=== PATIENT | male | born 1960 | race Caucasian/White ===

== ENCOUNTER 2024-11-26 14:45 | Emergency (ER) | payer MEDICARE, MEDICAID, SELFPAY ==
[2024-11-26 14:46] VITALS: BMI 20.5
[2024-11-26 15:12] VITALS: BP 145/83; PULSE 101; RESP 19; TEMP 36.9; O2SAT 100
--- NOTE | 2024-11-26 15:31 | PD.EDADULT ---
ED General RME/HPI General Chief complaint: General Adult/Misc Complain Stated complaint: SEND BY CLINIC FOR LOW SODIUM LEVEL Time Seen by Provider: 11/26/24 15:24 Arrival date/time: 11/26/24 14:45 RME / HPI RME / HPI narrative: 64-year-old male patient with significant history of seizure disorder, on Depakote, Down syndrome, mental retardation, was brought in by caregiver for sodium that was low taking for routine blood draw last week. The family or the caregiver does not know what is the number. According to the family patient is currently on his baseline with mentation. Patient is not ambulatory for several years now. Wheelchair-bound. No vomiting no fever no diarrhea. Related Data Home Medications ?Medication ?Instructions ?Recorded ?Confirmed calcium 500 mg (as 1 tab PO BID 02/26/22 02/26/22 carbonate)-vitamin D3 5 mcg (200 unit) tablet (Calcium 500 + D) divalproex 125 mg capsule,delayed See Rx Instructions .Route .COMPLEX 02/26/22 02/26/22 release sprinkle docusate sodium 100 mg capsule 100 mg PO QDAY 02/26/22 02/26/22 famotidine 20 mg tablet 20 mg PO BID 02/26/22 02/26/22 loratadine 10 mg tablet 10 mg PO QDAY 02/26/22 02/26/22 meloxicam 15 mg tablet 15 mg PO QDAY 02/26/22 02/26/22 Previous Rx's ?Medication ?Instructions ?Recorded cephalexin 500 mg capsule 500 mg PO BID #20 caps 07/16/23 Allergies Allergy/AdvReac Type Severity Reaction Status Date / Time SEIZURE MEDICATION Allergy Uncoded 11/26/24 14:46 Review of Systems Review of Systems Narrative Review of Systems: Review of system reviewed and within normal limits except mentioned in HPI ED Exam Narrative Physical exam: VITAL SIGNS: Reviewed. GENERAL APPEARANCE: Alert and good eye contact, does not follows commands, no acute distress, HEAD AND FACE: Non-traumatic. ENT: PERRL, pink conjunctivitis, eyelid no trauma, Mucous membrane moist. NECK: Supple, nontender, no nuchal rigidity. CHEST: No tenderness, no crepitus, no paradoxical movement, no retractions. LUNGS: Clear, well ventilated, symmetric, no rales, no wheezing, no ronchi, no stridor, good breath sounds bilaterally. HEART: Regular rate, regular rhythm, no murmur, no gallops. ABDOMEN: Soft, positive bowel sounds, nondistended, no guarding, nontender, no rebound, no masses, RECTAL: Deferred. GENITAL: Deferred. NEUROLOGICAL: Gross motor function intact sensory function intact, Appropriate for age. MUSCULOSKELETAL: low back nontender, full range of motion. EXTREMITIES: Nontender, full range of motion. SKIN: Color pink, dry, no rash, no lacerations, no abrasions, no contusions. LYMPHATICS: Deferred. Course Quality Measures none Orders Category Date Time Status EKG (ED ONLY) *Do not use* NOW Care 11/26/24 15:31 Active EKG (ED Only) Stat Exams 11/26/24 15:31 Ordered CBC [CBC] Stat Lab 11/26/24 15:36 Completed CMP [Comprehensive Metabolic Panel] Stat Lab 11/26/24 15:36 Completed Magnesium Stat Lab 11/26/24 15:36 Completed Vital Signs Vital signs: Vital Signs Temperature 98.5 F 11/26/24 15:12 Pulse Rate 101 H 11/26/24 15:12 Respiratory Rate 19 11/26/24 15:12 Blood Pressure 145/83 H 11/26/24 15:12 Pulse Oximetry (%) 100 11/26/24 15:12 Oxygen Delivery Method Room Air 11/26/24 15:12 Discharge Plan Plan Patient Disposition: HOME (Self Care) Discharge Disposition comment: Stable Prescriptions/Referrals Prescriptions/Med Rec: No Action meloxicam 15 mg tablet 15 mg PO QDAY famotidine 20 mg tablet 20 mg PO BID docusate sodium 100 mg Capsule 100 mg PO QDAY divalproex 125 mg capsule, delayed rel sprinkle See Rx Instructions .ROUTE .COMPLEX Rx Instructions: 2 caps in the morning and 3 caps at bedtime loratadine 10 mg tablet 10 mg PO QDAY calcium carbonate-vitamin D3 [Calcium 500 + D] 500 mg-5 mcg (200 unit) Tablet 1 tab PO BID cephalexin 500 mg capsule 500 mg PO BID Qty: 20 0RF Referrals: Varinder Hernandez MD [Primary Care Provider, Family Practice] - In 1 week Problem List Clinical Impression: Well adult health check, History of Down syndrome, Down syndrome Patient/Caregiver Discharge Instructions Discharge Activity: activity as tolerated Education Materials: Reducing Your Health Risks ... Additional Instructions: Thank you for the opportunity for serving you today. You are stable for discharged . You are advised to: Follow-up with your PCP in 1 to 2 days Return to ED for worsening of symptoms Increase oral fluids Add extra salt in your food Your sodium today was noted to be 134 Print Language: Tunisian Stand Alone Forms: Marisol Award Info., Patient Portal Info Letter KELLY/MARGUERITE Supervising Physician KELLY/MARGUERITE Supervising Physician: MD Bi MDM Narrative MDM hospital course (for use when minimal MDM required): 64-year-old male patient with significant history of seizure disorder, on Depakote, Down syndrome, mental retardation, was brought in by caregiver for sodium that was low taking for routine blood draw last week. The family or the caregiver does not know what is the number. According to the family patient is currently on his baseline with mentation. Patient is not ambulatory for several years now. Wheelchair-bound. No vomiting no fever no diarrhea. Patient CMP today showed sodium of 134 the rest of the labs unremarkable. Results discussed with the family/caregiver. Patient stable for discharge home advised him to add salt in his diet. Okay to discharge home. Diagnosis Differential Diagnosis ED Complaint MDM: Hyponatremia, electrolyte imbalance, excessive water intake Diagnoses ruled out and/or further discussions: Well adult check, history of Down syndrome
[2024-11-26 15:50] LABS: Basophils # (Auto) 0.1 Thou/mm3 (0.0-0.2); Basophils % (Auto) 1 % (0-2.5); Eosinophils # (Auto) 0.1 Thou/mm3 (0.0-0.5); Eosinophils % (Auto) 1 % (0-10); Hematocrit 39.5 % (41.0-53.0); Hemoglobin 13.2 g/dL (13.5-16.0); Immature Granulocytes Auto 0.03 Thou/mm3 (0.00-0.00); Lymphocytes # (Auto) 1.3 Thou/mm3 (1.0-4.8); Lymphocytes % (Auto) 32 % (10-50); Mean Corpuscular HGB Conc 33.4 g/dl (31.0-37.0); Mean Corpuscular Hemoglobin 34.0 pg (25.0-35.0); Mean Corpuscular Volume 102 fL (80-100); Monocytes # (Auto) 0.4 Thou/mm3 (0.0-0.8); Monocytes % (Auto) 10 % (0-12); Neutrophils # (Auto) 2.2 Thou/mm3 (1.8-7.7); Neutrophils % (Auto) 55 % (37-80); Nucleated Red Blood Cell # 0.00 Thou/mm3 (0.00-0.00); Nucleated Red Blood Cell % 0 /100 WBC (0); Platelet Count 286 Thou/mm3 (140-440); RDW Standard Deviation 55.2 fL (35.1-43.9); Red Blood Count 3.88 Miln/mm3 (4.50-5.90); White Blood Count 3.9 Thou/mm3 (3.8-10.6)
[2024-11-26 16:17] LABS: Alanine Aminotransferase < 7 U/L (10-49); Albumin, Serum 3.8 gm/dL (3.4-4.8); Albumin/Globulin Ratio 1.2 (1.2-2.2); Alkaline Phosphatase 72 U/L (46-116); Anion Gap 5 (7-16); Aspartate Amino Transferase 19 U/L (0-34); BUN/Creatinine Ratio 13 Ratio (12-20); Bilirubin,Total 0.3 mg/dL (0.3-1.2); Blood Urea Nitrogen 13 mg/dL (9-23); Calcium 9.0 mg/dL (8.3-10.6); Calcium (Corrected) 9.2 mg/dL (8.5-10.1); Carbon Dioxide 30.3 mMol/L (20.0-31.0); Chloride 99 mMol/L (98-107); Creatinine (Component) 1.0 mg/dL (0.6-1.3); Estimated Creatinine Clearance 50.3 mL/min (>60); Globulin 3.1 gm/dL (2.3-3.5); Glucose 88 mg/dL (74-106); Magnesium 2.0 mg/dL (1.6-2.6); Osmolality,Calculated 267 (275-295); Potassium 4.8 mMol/L (3.4-5.1); Sodium 134 mMol/L (136-145); Total Protein 6.9 gm/dL (5.7-8.2); eGFR > 60 See Note
[2024-11-26 18:03] VITALS: BP 136/81; PULSE 95; RESP 17; O2SAT 98
== END 2024-11-26 18:05 | disposition home or self-care (01) ==
PROVIDERS: Nurse Practitioner Family; Emergency Provider Family Medicine; PCP Family Medicine
DX: E87.1 Hypo-osmolality and hyponatremia (principal); Q90.9 Down syndrome, unspecified; F79 Unspecified intellectual disabilities; Z99.3 Dependence on wheelchair; R56.9 Unspecified convulsions; Z79.899 Other long term (current) drug therapy
CPT/HCPCS: 36415; 80053; 83735; 85025; 99283